=== PATIENT | female | born 1935 | race Caucasian/White ===

== ENCOUNTER → 2017-02-14 | Outpatient (CLI) | payer OTHER ==
[~2017-02-14] MED LIST: ASPIRIN325 MG PO; ASPIRIN81 M1 PO; CALCIUM600 M2 PO; PERCOCET 325 MG1 TA2 PO; ZOFRAN 4 MG ED2 TAB PO
== END | disposition home or self-care (01) ==
LOC: RAD 10:58
DX: Z13.820 Encounter for screening for osteoporosis (principal); M81.0 Age-related osteoporosis without current pathological fracture; E55.9 Vitamin D deficiency, unspecified; N95.9 Unspecified menopausal and perimenopausal disorder; Z98.890 Other specified postprocedural states

== ENCOUNTER → 2017-07-29 | Outpatient (CLI) | payer OTHER | LOC: ORTHO 01:45 | DX: S72.002D Fracture of unspecified part of neck of left femur, subsequent encounter for closed fracture with routine healing (principal); Z87.81 Personal history of (healed) traumatic fracture; Z96.642 Presence of left artificial hip joint; X58.XXXD Exposure to other specified factors, subsequent encounter ==

== ENCOUNTER → 2018-04-02 | Day surgery (SDC) | payer OTHER ==
[~2018-04-02] VITALS: Ht 165.1 cm; Wt 68.0 kg
[~2018-04-02] MED LIST changes: +ALENDRONATE SOD70 M1 PO; +ASPIRIN ADULT L81 M2 PO; +MULTIPLE VITAM1 EAC1 PO; +VITAMIN C500 M4 PO; +VITAMIN D400 UNIT/1 PO
--- NOTE | ~2018-04-02 | O ---
[place], [place] OPERATIVE NOTE NAME: ALICE NEELY UNIT #: [id number] ROOM: DOCTOR: NISH RANDOLPH MD BIRTHDATE: [birth year] DOS: 04/02/2018 PREOPERATIVE DIAGNOSIS: Cataract, left eye. POSTOPERATIVE DIAGNOSIS: Cataract, left eye. OPERATION: Extracapsular cataract extraction by phacoemulsification with posterior chamber intraocular lens implantation, left eye. ANESTHESIA: Monitored standby. OPERATIVE FINDINGS AND PROCEDURE: 2% Xylocaine topical anesthetic gel was applied to the eye in the preop area. The patient was taken to the operating room and prepped and draped in the standard fashion for sterile intraocular surgery. A time out procedure was performed verifying correct patient, correct site and corrects lens with Fam Randolph M.D. The operating microscope was swung into position and the lid speculum was inserted. Using a Claudette paracentesis blade, a paracentesis was made through clear cornea. Viscoelastic was used to fill the anterior chamber. Using a metal keratome a 2.4 mm self-sealing clear corneal cataract incision was made temporally at the limbus. Using a pre-bent 25 gauge cystotome needle, a standard continuous curvilinear capsulorrhexis was performed. The anterior capsule was removed with forceps. The lens nucleus was hydrodissected and phacoemulsified in the posterior chamber. Cortical material was removed with the irrigation aspiration hand piece and the posterior capsule was then polished with a curet under irrigation. The posterior chamber and capsular bag were filled with viscoelastic. A posterior chamber intraocular lens manufactured by: [employer], Model #[id number], and 20.0 diopters in strength were then inserted into the posterior chamber and within the capsular bag using the lens cartridge and injector system. Viscoelastic was removed using the irrigation aspiration handpiece. The anterior chamber was filled with balanced salt solution through the paracentesis. Both the paracentesis site and cataract incisions were hydrated with BSS and verified to be water-tight and self-sealing. The incision checked to be water-tight using a Weck-Kayla sponge. The integrity of the cataract wound and ocular tension were checked. Lid speculum and drapes were removed. The patient was transferred from the operating room to the recovery room in satisfactory condition. [place], [place] OPERATIVE NOTE NAME: ALICE NEELY UNIT #: [id number] ROOM: DOCTOR: NISH RANDOLPH MD BIRTHDATE: [birth year] NISH RANDOLPH MD CM:OPRECORD:OPERATIVE NOTE 1215 [id number] NISH RANDOLPH MD 04/02/18 1303 interface
[2018-04-02 10:38] VITALS: BP 150/62
[2018-04-02 11:59] VITALS: BP 122/67
[2018-04-02 12:14] VITALS: BP 122/62
[2018-04-02 12:29] VITALS: BP 138/64
== END | disposition home or self-care (01) ==
LOC: SDC 03-31 08:45
DX: H25.812 Combined forms of age-related cataract, left eye (principal); Z79.82 Long term (current) use of aspirin; Z79.899 Other long term (current) drug therapy; Z88.0 Allergy status to penicillin; Z91.09 Other allergy status, other than to drugs and biological substances; Z96.642 Presence of left artificial hip joint

== ENCOUNTER → 2018-04-23 | Day surgery (SDC) | payer OTHER ==
[~2018-04-23] VITALS: Ht 165.1 cm; Wt 63.5 kg
--- NOTE | ~2018-04-23 | O ---
[place], [place] OPERATIVE NOTE NAME: ALICE NEELY UNIT #: [id number] ROOM: DOCTOR: JOHN RANDOLPH MD BIRTHDATE: [birth year] DOS: 04/23/2018 PREOPERATIVE DIAGNOSIS: Cataract, right eye. POSTOPERATIVE DIAGNOSIS: Cataract, right eye. OPERATION: Extracapsular cataract extraction by phacoemulsification with posterior chamber intraocular lens implantation, right eye. ANESTHESIA: Monitored standby. OPERATIVE FINDINGS AND PROCEDURE: A 2% Xylocaine topical anesthetic gel was applied to the eye in the preop area. The patient was taken to the operating room and prepped and draped in the standard fashion for sterile intraocular surgery. A time out procedure was performed verifying correct patient, correct site and corrects lens with John Randolph M.D. The operating microscope was swung into position and the lid speculum was inserted. Using a Claudette paracentesis blade, a paracentesis was made through clear cornea. Viscoelastic was used to fill the anterior chamber. Using a metal keratome a 2.4 mm self-sealing clear corneal cataract incision was made temporally at the limbus. Using a pre-bent 25 gauge cystotome needle, a standard continuous curvilinear capsulorrhexis was performed. The anterior capsule was removed with forceps. The lens nucleus was hydrodissected and phacoemulsified in the posterior chamber. Cortical material was removed with the irrigation aspiration hand piece and the posterior capsule was then polished with a curet under irrigation. The posterior chamber and capsular bag were filled with viscoelastic. A posterior chamber intraocular lens manufactured by: [employer], Model #[id number], and 20.0 diopters in strength were then inserted into the posterior chamber and within the capsular bag using the lens cartridge and injector system. Viscoelastic was removed using the irrigation aspiration handpiece. The anterior chamber was filled with balanced salt solution through the paracentesis. Both the paracentesis site and cataract incisions were hydrated with BSS and verified to be water-tight and self-sealing. The incision checked to be water-tight using a Weck-Kayla sponge. The integrity of the cataract wound and ocular tension were checked. Lid speculum and drapes were removed. The patient was transferred from the operating room to the recovery room in satisfactory condition. [place], [place] OPERATIVE NOTE NAME: ALICE NEELY UNIT #: [id number] ROOM: DOCTOR: JOHN RANDOLPH MD BIRTHDATE: [birth year] JOHN RANDOLPH MD CM:OPRECORD:OPERATIVE NOTE 1300 1623 JOHN RANDOLPH MD 04/23/18 1621 interface
[2018-04-23 10:48] VITALS: BP 106/76
[2018-04-23 12:56] VITALS: BP 145/63
[2018-04-23 13:10] VITALS: BP 153/87
[2018-04-23 13:19] VITALS: BP 137/76
== END | disposition home or self-care (01) ==
LOC: SDC 04-18 12:30
DX: H25.811 Combined forms of age-related cataract, right eye (principal); Z88.0 Allergy status to penicillin; Z91.040 Latex allergy status; Z91.09 Other allergy status, other than to drugs and biological substances; Z96.642 Presence of left artificial hip joint; Z90.49 Acquired absence of other specified parts of digestive tract; Z80.9 Family history of malignant neoplasm, unspecified

== ENCOUNTER 2021-02-19 18:52 | Emergency (ER) | payer OTHER ==
[~2021-02-19] VITALS: Wt 61.2 kg
[2021-02-19] MEDS ORDERED: HYDROCODONE-AC1 EAC1 PO (21:52)
== END 2021-02-19 22:23 | disposition home or self-care (01) ==
LOC: ED 18:52
DX: S42.202A Unspecified fracture of upper end of left humerus, initial encounter for closed fracture (principal); S42.422A Displaced comminuted supracondylar fracture without intercondylar fracture of left humerus, initial encounter for closed fracture; Z88.0 Allergy status to penicillin; Z91.048 Other nonmedicinal substance allergy status; Z79.899 Other long term (current) drug therapy; Z79.82 Long term (current) use of aspirin; Z96.642 Presence of left artificial hip joint; W19.XXXA Unspecified fall, initial encounter; Y93.89 Activity, other specified; Y92.89 Other specified places as the place of occurrence of the external cause; Y99.8 Other external cause status

== ENCOUNTER 2021-03-25 09:35 | Emergency (ER) | payer OTHER ==
[~2021-03-25] VITALS: Ht 165.1 cm
[~2021-03-25 09:35] MED LIST changes: +HYDROCODONE-AC1 EAC1 PO
[2021-03-25 10:15] LABS: BASO # 0.1 10*3/uL (0.0-0.1); BASO % 0.9 % (0.0-1.0); EOS # 0.8 10*3/uL (0.0-0.4); EOS % 14.2 % (1.0-4.0); HEMATOCRIT 39.5 % (37.0-47.0); LYMPH % 17.7 % (27.0-41.0); MEAN CELL VOLUME 96.3 fl (81.0-99.0); MEAN CORPUSCULAR HGB 29.8 pg (27.0-31.0); MEAN CORPUSCULAR HGB CONC 30.9 g/dl (33.0-37.0); MEAN PLATELET VOLUME 10.4 fl (9.6-12.3); MONO # 0.5 10*3/uL (0.1-1.0); MONO % 8.8 % (3.0-9.0); NEUT # 3.3 10*3/uL (2.3-7.9); PLATELET COUNT AUTOMATED 224 10*3/uL (130-400); RED CELL DISTRI WIDTH 13.2 % (0-14.5); WHITE BLOOD COUNT 5.7 10*3/uL (4.8-10.8)
[2021-03-25 10:31] LABS: ALBUMIN 3.2 gm/dl (3.1-4.5); ALKALINE PHOSPHATASE 111 U/L (45-117); BUN 8 mg/dl (7-24); CHLORIDE 111 mmol/L (98-107); CREATININE 0.74 mg/dL (0.55-1.02); LIPASE 120 U/L (73-393); POTASSIUM 4.1 mmol/L (3.5-5.1); SGOT/AST 10 IU/L (3-35); SGPT/ALT 7 U/L (12-78); SODIUM 139 mmol/L (136-145); TOTAL PROTEIN 6.9 gm/dL (6.4-8.2)
[2021-03-25 10:35] LABS: BILIRUBIN Negative (Negative); BLOOD Negative (Negative); CLARITY Clear (Clear); COLOR Yellow (Yellow); GLUCOSE Negative (Negative); KETONE Negative (Negative); LEUKO ESTERASE Negative (Negative); NITRITE Negative (Negative); PH 7.5 (4.5-8.0)
[2021-03-25 10:49] LABS: BACTERIA 2+; EPITHELIAL CELLS 0-2; MUCOUS 1+; RBC 0-2 rbc/hpf (0-2); WBC 0-2 wbc/hpf (0-5)
== END 2021-03-25 11:03 | disposition home or self-care (01) ==
LOC: ED 09:35
PROVIDERS: Emergency Medicine
DX: S50.322A Blister (nonthermal) of left elbow, initial encounter (principal); R11.0 Nausea; Z88.0 Allergy status to penicillin; Z91.048 Other nonmedicinal substance allergy status; Z79.899 Other long term (current) drug therapy; Z79.82 Long term (current) use of aspirin; Z96.642 Presence of left artificial hip joint; X58.XXXA Exposure to other specified factors, initial encounter; Y93.89 Activity, other specified; Y92.89 Other specified places as the place of occurrence of the external cause; Y99.8 Other external cause status

== ENCOUNTER → 2021-05-24 | Outpatient (CLI) | payer OTHER | END | disposition home or self-care (01) | LOC: RAD 13:34 | PROVIDERS: ATTEND Nurse Practitioner Primary Care | DX: Z13.820 Encounter for screening for osteoporosis (principal); M81.0 Age-related osteoporosis without current pathological fracture; Z78.0 Asymptomatic menopausal state ==

== ENCOUNTER 2021-06-28 21:25 | Emergency (ER) | payer OTHER ==
[~2021-06-28] VITALS: Ht 165.1 cm; Wt 61.2 kg
[2021-06-29 01:39] LABS: BASO % 0.7 % (0.0-1.0); EOS # 0.1 10*3/uL (0.0-0.4); EOS % 2.3 % (1.0-4.0); HEMATOCRIT 43.9 % (37.0-47.0); LYMPH # 1.4 10*3/uL (1.3-4.4); LYMPH % 22.7 % (27.0-41.0); MEAN CELL VOLUME 92.8 fl (81.0-99.0); MEAN CORPUSCULAR HGB 29.2 pg (27.0-31.0); MEAN CORPUSCULAR HGB CONC 31.4 g/dl (33.0-37.0); MEAN PLATELET VOLUME 10.9 fl (9.6-12.3); MONO # 0.6 10*3/uL (0.1-1.0); MONO % 10.3 % (3.0-9.0); NEUT # 3.9 10*3/uL (2.3-7.9); NEUT % 63.7 % (47.0-73.0); PLATELET COUNT AUTOMATED 194 10*3/uL (130-400); RED BLOOD COUNT 4.73 10*6/uL (4.10-5.10); RED CELL DISTRI WIDTH 13.2 % (0-14.5); WHITE BLOOD COUNT 6.1 10*3/uL (4.8-10.8)
[2021-06-29 02:00] LABS: ALBUMIN 3.4 gm/dl (3.1-4.5); ALKALINE PHOSPHATASE 87 U/L (45-117); BUN 15 mg/dl (7-24); CHLORIDE 108 mmol/L (98-107); CREATININE 0.91 mg/dL (0.55-1.02); POTASSIUM 4.2 mmol/L (3.5-5.1); SGOT/AST 14 IU/L (3-35); SGPT/ALT 12 U/L (12-78); SODIUM 141 mmol/L (136-145); TOTAL PROTEIN 7.1 gm/dL (6.4-8.2)
[2021-06-29] MEDS ORDERED: MIRALAX POWDER17 G1 PO (02:29)
== END 2021-06-29 02:45 | disposition home or self-care (01) ==
LOC: ED 21:25
PROVIDERS: Internal Medicine
DX: K59.00 Constipation, unspecified (principal); Z88.0 Allergy status to penicillin; Z79.899 Other long term (current) drug therapy; Z79.82 Long term (current) use of aspirin

== ENCOUNTER → 2021-08-23 | Outpatient (CLI) | payer OTHER ==
[~2021-08-23] MED LIST changes: +MIRALAX POWDER17 G1 PO
== END | disposition home or self-care (01) ==
LOC: US 13:21
PROVIDERS: ATTEND Nurse Practitioner Primary Care
DX: R20.0 Anesthesia of skin (principal); M79.89 Other specified soft tissue disorders; R09.89 Other specified symptoms and signs involving the circulatory and respiratory systems

== ENCOUNTER 2022-08-16 08:16 | Emergency (ER) | payer OTHER ==
[~2022-08-16] VITALS: Ht 165.1 cm; Wt 52.2 kg
[2022-08-16] MEDS ORDERED: SINEMET 25-1001 EACH PO (08:53)
[2022-08-16] MEDS ORDERED: MIRTAZAPINE15 M2 PO (08:53)
[2022-08-16 09:12] LABS: BASO % 0.8 % (0.0-1.0); EOS # 0.1 10*3/uL (0.0-0.4); EOS % 2.2 % (1.0-4.0); HEMATOCRIT 41.3 % (37.0-47.0); LYMPH # 0.7 10*3/uL (1.3-4.4); LYMPH % 20.2 % (27.0-41.0); MEAN CELL VOLUME 93.4 fl (81.0-99.0); MEAN CORPUSCULAR HGB 29.4 pg (27.0-31.0); MEAN CORPUSCULAR HGB CONC 31.5 g/dl (33.0-37.0); MONO # 0.4 10*3/uL (0.1-1.0); MONO % 11.2 % (3.0-9.0); NEUT # 2.4 10*3/uL (2.3-7.9); NEUT % 65.1 % (47.0-73.0); PLATELET COUNT AUTOMATED 196 10*3/uL (130-400); RED BLOOD COUNT 4.42 10*6/uL (4.10-5.10); RED CELL DISTRI WIDTH 12.6 % (0-14.5); WHITE BLOOD COUNT 3.7 10*3/uL (4.8-10.8)
[2022-08-16 09:25] LABS: ACT PARTIAL THROMBO TIME 30.2 SECONDS (20.0-32.1); INTERNATIONAL NORM RATIO 1.1 (2.0-3.5)
[2022-08-16 09:28] LABS: ALKALINE PHOSPHATASE 87 U/L (45-117); BUN 15 mg/dl (7-24); CHLORIDE 109 mmol/L (98-107); CREATININE 0.76 mg/dL (0.55-1.02); POTASSIUM 3.8 mmol/L (3.5-5.1); SGPT/ALT 7 U/L (12-78); SODIUM 143 mmol/L (136-145); TOTAL PROTEIN 6.6 gm/dL (6.4-8.2)
[2022-08-16 09:31] LABS: BILIRUBIN Negative (Negative); BLOOD Negative (Negative); CLARITY Clear (Clear); COLOR Yellow (Yellow); GLUCOSE Negative (Negative); KETONE Trace (Negative); LEUKO ESTERASE 2+ (Negative); NITRITE Negative (Negative); SPECIFIC GRAVITY 1.025 (1.001-1.030)
[2022-08-16 10:15] LABS: WBC 21-30 wbc/hpf (0-5)
[2022-08-16 10:17] LABS: BACTERIA 3+; CALCIUM OXALATE CRYSTALS 1+
== END 2022-08-16 11:55 | disposition home or self-care (01) ==
LOC: ED 08:16
PROVIDERS: Emergency Medicine
DX: R53.1 Weakness (principal); G20 Parkinson's disease; Z88.0 Allergy status to penicillin; Z79.899 Other long term (current) drug therapy; Z79.82 Long term (current) use of aspirin

== ENCOUNTER 2022-08-21 19:18 | Inpatient (IN) | payer OTHER ==
[~2022-08-21] VITALS: Ht 165.1 cm; Wt 50.8 kg
[~2022-08-21 19:18] MED LIST changes: +MIRTAZAPINE15 M2 PO; +SINEMET 25-1001 EACH PO
[2022-08-21 19:20] VITALS: BP 114/74
[2022-08-21 20:26] LABS: BASO % 0.4 % (0.0-1.0); EOS # 0.1 10*3/uL (0.0-0.4); EOS % 1.3 % (1.0-4.0); HEMATOCRIT 40.5 % (37.0-47.0); LYMPH # 0.8 10*3/uL (1.3-4.4); LYMPH % 16.1 % (27.0-41.0); MEAN CELL VOLUME 94.2 fl (81.0-99.0); MEAN CORPUSCULAR HGB 29.8 pg (27.0-31.0); MEAN CORPUSCULAR HGB CONC 31.6 g/dl (33.0-37.0); MEAN PLATELET VOLUME 11.9 fl (9.6-12.3); MONO # 0.5 10*3/uL (0.1-1.0); MONO % 9.8 % (3.0-9.0); NEUT # 3.4 10*3/uL (2.3-7.9); PLATELET COUNT AUTOMATED 165 10*3/uL (130-400); RED CELL DISTRI WIDTH 12.9 % (0-14.5); WHITE BLOOD COUNT 4.8 10*3/uL (4.8-10.8)
[2022-08-21 20:47] LABS: ALKALINE PHOSPHATASE 80 U/L (46-116); BUN 11 mg/dl (9-23); CHLORIDE 105 mmol/L (98-107); CREATININE 0.76 mg/dL (0.55-1.02); POTASSIUM 3.8 mmol/L (3.4-5.1); SODIUM 140 mmol/L (136-145)
[2022-08-21 20:48] LABS: TOTAL PROTEIN 6.2 gm/dL (6.0-8.0)
[2022-08-21 20:49] LABS: SGPT/ALT < 7 U/L (10-49)
[2022-08-21 20:50] LABS: THYROID STIM HORMONE (HS) 1.076 uIU/ml (0.550-4.780)
[2022-08-21 20:59] LABS: BILIRUBIN Negative (Negative); BLOOD Negative (Negative); CLARITY Clear (Clear); COLOR Yellow (Yellow); GLUCOSE Negative (Negative); KETONE 1+ (Negative); LEUKO ESTERASE Trace (Negative); NITRITE Negative (Negative); PH 6.5 (4.5-8.0); SPECIFIC GRAVITY 1.015 (1.001-1.030)
[2022-08-21 21:19] LABS: RBC 0-2 rbc/hpf (0-2)
[2022-08-22 06:20] LABS: BASO % 0.6 % (0.0-1.0); EOS # 0.1 10*3/uL (0.0-0.4); EOS % 1.3 % (1.0-4.0); HEMATOCRIT 41.2 % (37.0-47.0); LYMPH # 1.1 10*3/uL (1.3-4.4); LYMPH % 21.2 % (27.0-41.0); MEAN CELL VOLUME 94.7 fl (81.0-99.0); MEAN CORPUSCULAR HGB 29.4 pg (27.0-31.0); MEAN CORPUSCULAR HGB CONC 31.1 g/dl (33.0-37.0); MEAN PLATELET VOLUME 11.6 fl (9.6-12.3); MONO # 0.6 10*3/uL (0.1-1.0); MONO % 11.1 % (3.0-9.0); NEUT # 3.5 10*3/uL (2.3-7.9); NEUT % 65.2 % (47.0-73.0); PLATELET COUNT AUTOMATED 166 10*3/uL (130-400); RED BLOOD COUNT 4.35 10*6/uL (4.10-5.10); RED CELL DISTRI WIDTH 12.7 % (0-14.5); WHITE BLOOD COUNT 5.3 10*3/uL (4.8-10.8)
[2022-08-22 06:36] LABS: ALKALINE PHOSPHATASE 79 U/L (46-116); BUN 9 mg/dl (9-23); CHLORIDE 107 mmol/L (98-107); CHOLESTEROL 163 mg/dL (<200); CREATININE 0.68 mg/dL (0.55-1.02); LDL CHOLESTEROL 101 mg/dL (9-159); POTASSIUM 3.6 mmol/L (3.4-5.1); SODIUM 141 mmol/L (136-145); TRIGLYCERIDES 75 mg/dl (<150)
[2022-08-22 06:40] LABS: FREE T4 1.23 ng/dl (0.89-1.76)
[2022-08-22 06:41] LABS: SGPT/ALT < 7 U/L (10-49)
[2022-08-22 07:30] VITALS: BP 140/60
[2022-08-22 10:30] VITALS: BP 150/69
[2022-08-22 13:30] VITALS: BP 158/77
[2022-08-22 17:30] VITALS: BP 159/66
[2022-08-22 20:00] VITALS: BP 148/72
[2022-08-23] VITALS: BP 129/67
[2022-08-23 07:46] VITALS: BP 120/76
[2022-08-23 12:15] VITALS: BP 132/73
[2022-08-23 16:00] VITALS: BP 137/63
[2022-08-23 20:00] VITALS: BP 153/68
[2022-08-24] VITALS: BP 129/60
[2022-08-24 08:00] VITALS: BP 142/68
[2022-08-24 12:00] VITALS: BP 133/67
[2022-08-24 16:00] VITALS: BP 146/67
[2022-08-24 20:00] VITALS: BP 118/62
[2022-08-25] VITALS: BP 110/58
[2022-08-25 04:39] VITALS: BP 110/50
[2022-08-25 08:00] VITALS: BP 126/59
[2022-08-25 12:00] VITALS: BP 132/68
[2022-08-25 16:00] VITALS: BP 133/57
[2022-08-25 20:00] VITALS: BP 117/65
[2022-08-26] VITALS: BP 121/62
[2022-08-26 04:11] VITALS: BP 118/66
[2022-08-26 08:00] VITALS: BP 134/57
[2022-08-26 12:00] VITALS: BP 109/57
[2022-08-26 16:00] VITALS: BP 120/50
[2022-08-26 20:00] VITALS: BP 127/66
[2022-08-27] VITALS: BP 128/83
[2022-08-27 05:20] LABS: CREATININE 0.81 mg/dL (0.55-1.02)
[2022-08-27 06:26] LABS: BASO % 0.6 % (0.0-1.0); EOS # 0.1 10*3/uL (0.0-0.4); HEMATOCRIT 38.9 % (37.0-47.0); LYMPH # 1.5 10*3/uL (1.3-4.4); LYMPH % 32.2 % (27.0-41.0); MEAN CORPUSCULAR HGB CONC 30.8 g/dl (33.0-37.0); MONO # 0.7 10*3/uL (0.1-1.0); MONO % 13.9 % (3.0-9.0); NEUT # 2.4 10*3/uL (2.3-7.9); NEUT % 50.1 % (47.0-73.0); PLATELET COUNT AUTOMATED 160 10*3/uL (130-400); RED BLOOD COUNT 4.14 10*6/uL (4.10-5.10); RED CELL DISTRI WIDTH 12.8 % (0-14.5); WHITE BLOOD COUNT 4.7 10*3/uL (4.8-10.8)
[2022-08-27 08:00] VITALS: BP 124/61
[2022-08-27 12:00] VITALS: BP 135/60
== END 2022-08-27 13:00 | disposition home health service (06) | DRG 69 ==
LOC: ED 19:18 → EDHOLD 08-22 00:11 → 5E 08-22 00:11
PROVIDERS: Emergency Medicine; Internal Medicine; ADMIT Internal Medicine; ATTEND Internal Medicine
DX: G45.9 Transient cerebral ischemic attack, unspecified (principal); L12.0 Bullous pemphigoid; R26.2 Difficulty in walking, not elsewhere classified; G20 Parkinson's disease; Z20.822 Contact with and (suspected) exposure to COVID-19; Z96.642 Presence of left artificial hip joint; R73.9 Hyperglycemia, unspecified; L89.312 Pressure ulcer of right buttock, stage 2; Z88.0 Allergy status to penicillin; Z82.49 Family history of ischemic heart disease and other diseases of the circulatory system; Z87.39 Personal history of other diseases of the musculoskeletal system and connective tissue

== ENCOUNTER → 2022-09-06 | Outpatient (CLI) | payer OTHER | END | disposition home or self-care (01) | LOC: WOUNDCARE 04:49 | PROVIDERS: ATTEND Nurse Practitioner Family | DX: L89.153 Pressure ulcer of sacral region, stage 3 (principal); L89.313 Pressure ulcer of right buttock, stage 3; G20 Parkinson's disease; M85.80 Other specified disorders of bone density and structure, unspecified site ==

== ENCOUNTER → 2023-02-27 | Outpatient (CLI) | payer OTHER, MEDICAID ==
[~2023-02-27] MED LIST changes: +LEXAPRO10 MG PO; +VISTARIL25 MG PO
== END | disposition home or self-care (01) ==
LOC: RAD 12:03
PROVIDERS: ATTEND Psychiatry & Neurology Neurology
DX: M17.12 Unilateral primary osteoarthritis, left knee (principal)

== ENCOUNTER → 2023-07-12 | Outpatient (CLI) | payer MEDICARE ==
[~2023-07-12] MED LIST changes: +ANTIFUNGAL POWD85 G1 T; +LEVOFLOXACIN500 MG PO; +Sinemet Cr 50/21 TAB PO; +TAB-A-VITE TA400 MCG PO; +ZYVOX600 MG PO
== END | disposition home or self-care (01) ==
LOC: WOUNDCARE 02:35
PROVIDERS: ATTEND Nurse Practitioner Family
DX: L89.154 Pressure ulcer of sacral region, stage 4 (principal); L89.223 Pressure ulcer of left hip, stage 3; L89.313 Pressure ulcer of right buttock, stage 3; L89.323 Pressure ulcer of left buttock, stage 3; R62.7 Adult failure to thrive; D64.9 Anemia, unspecified; E43 Unspecified severe protein-calorie malnutrition; R26.89 Other abnormalities of gait and mobility; G20.C Parkinsonism, unspecified; M85.80 Other specified disorders of bone density and structure, unspecified site

== ENCOUNTER → 2023-07-16 | Outpatient (CLI) | payer MEDICARE | END | disposition home or self-care (01) | LOC: WOUNDCARE 04:38 | PROVIDERS: ATTEND Nurse Practitioner Family | DX: L89.154 Pressure ulcer of sacral region, stage 4 (principal); L89.323 Pressure ulcer of left buttock, stage 3; L89.313 Pressure ulcer of right buttock, stage 3; R62.7 Adult failure to thrive; D64.9 Anemia, unspecified; E43 Unspecified severe protein-calorie malnutrition; R26.89 Other abnormalities of gait and mobility; G20.C Parkinsonism, unspecified; M85.80 Other specified disorders of bone density and structure, unspecified site ==

== ENCOUNTER → 2023-07-24 | Outpatient (CLI) | payer MEDICARE | END | disposition home or self-care (01) | LOC: WOUNDCARE 01:22 | PROVIDERS: ATTEND Nurse Practitioner Family | DX: L89.154 Pressure ulcer of sacral region, stage 4 (principal); L89.323 Pressure ulcer of left buttock, stage 3; L89.313 Pressure ulcer of right buttock, stage 3; R62.7 Adult failure to thrive; D64.9 Anemia, unspecified; E43 Unspecified severe protein-calorie malnutrition; R26.89 Other abnormalities of gait and mobility; G20.A1 Parkinson's disease without dyskinesia, without mention of fluctuations; M85.80 Other specified disorders of bone density and structure, unspecified site ==

== ENCOUNTER → 2023-07-31 | Outpatient (CLI) | payer MEDICARE | END | disposition home or self-care (01) | LOC: WOUNDCARE 01:55 | PROVIDERS: ATTEND Nurse Practitioner Family | DX: L89.154 Pressure ulcer of sacral region, stage 4 (principal); L89.323 Pressure ulcer of left buttock, stage 3; L89.313 Pressure ulcer of right buttock, stage 3; R62.7 Adult failure to thrive; D64.9 Anemia, unspecified; E43 Unspecified severe protein-calorie malnutrition; R26.89 Other abnormalities of gait and mobility; G20.A1 Parkinson's disease without dyskinesia, without mention of fluctuations; M85.80 Other specified disorders of bone density and structure, unspecified site ==

== ENCOUNTER → 2023-08-07 | Outpatient (CLI) | payer MEDICARE | END | disposition home or self-care (01) | LOC: WOUNDCARE 01:25 | PROVIDERS: ATTEND Nurse Practitioner Family | DX: L89.154 Pressure ulcer of sacral region, stage 4 (principal); L89.223 Pressure ulcer of left hip, stage 3; L89.313 Pressure ulcer of right buttock, stage 3; R62.7 Adult failure to thrive; D64.9 Anemia, unspecified; E43 Unspecified severe protein-calorie malnutrition; R26.89 Other abnormalities of gait and mobility; G20.A1 Parkinson's disease without dyskinesia, without mention of fluctuations; M85.80 Other specified disorders of bone density and structure, unspecified site ==

== ENCOUNTER → 2023-08-14 | Outpatient (CLI) | payer MEDICARE | LOC: WOUNDCARE 01:31 | PROVIDERS: ATTEND Nurse Practitioner Family | DX: L89.313 Pressure ulcer of right buttock, stage 3 (principal); L89.154 Pressure ulcer of sacral region, stage 4; L89.323 Pressure ulcer of left buttock, stage 3; R62.7 Adult failure to thrive; D64.9 Anemia, unspecified; E43 Unspecified severe protein-calorie malnutrition; R26.89 Other abnormalities of gait and mobility; G20.A1 Parkinson's disease without dyskinesia, without mention of fluctuations; M85.89 Other specified disorders of bone density and structure, multiple sites ==

== ENCOUNTER 2023-08-20 09:12 | Emergency (ER) | payer MEDICARE ==
[2023-08-20] MEDS ORDERED: MILK OF MA400 MG/53 PO (13:16)
[2023-08-20] MEDS ORDERED: REMERON15 M2 PO (13:17)
== END 2023-08-20 14:28 ==
LOC: ED 09:12
DX: R53.1 Weakness (principal); Z88.0 Allergy status to penicillin; Z98.890 Other specified postprocedural states

== ENCOUNTER → 2023-08-21 | Outpatient (CLI) | payer MEDICARE ==
[~2023-08-21] MED LIST changes: +MILK OF MA400 MG/53 PO; +REMERON15 M2 PO
== END | disposition home or self-care (01) ==
LOC: WOUNDCARE 01:26
PROVIDERS: ATTEND Nurse Practitioner Family
DX: L89.154 Pressure ulcer of sacral region, stage 4 (principal); L89.313 Pressure ulcer of right buttock, stage 3; L89.323 Pressure ulcer of left buttock, stage 3; R62.7 Adult failure to thrive; D64.9 Anemia, unspecified; E43 Unspecified severe protein-calorie malnutrition; R26.89 Other abnormalities of gait and mobility; G20.A1 Parkinson's disease without dyskinesia, without mention of fluctuations; M85.80 Other specified disorders of bone density and structure, unspecified site

== ENCOUNTER → 2023-08-27 | Outpatient (CLI) | payer MEDICARE | END | disposition home or self-care (01) | LOC: WOUNDCARE 00:49 | PROVIDERS: ATTEND Nurse Practitioner Family | DX: L89.154 Pressure ulcer of sacral region, stage 4 (principal); L89.313 Pressure ulcer of right buttock, stage 3; L89.323 Pressure ulcer of left buttock, stage 3; D64.9 Anemia, unspecified; E43 Unspecified severe protein-calorie malnutrition; R26.89 Other abnormalities of gait and mobility; G20.A1 Parkinson's disease without dyskinesia, without mention of fluctuations; M85.80 Other specified disorders of bone density and structure, unspecified site ==

== ENCOUNTER → 2023-09-04 | Outpatient (CLI) | payer MEDICARE | END | disposition home or self-care (01) | LOC: WOUNDCARE 01:28 | PROVIDERS: ATTEND Nurse Practitioner Primary Care | DX: L89.154 Pressure ulcer of sacral region, stage 4 (principal); L89.313 Pressure ulcer of right buttock, stage 3; L89.323 Pressure ulcer of left buttock, stage 3; L89.213 Pressure ulcer of right hip, stage 3; D64.9 Anemia, unspecified; E43 Unspecified severe protein-calorie malnutrition; G20.A1 Parkinson's disease without dyskinesia, without mention of fluctuations; R26.89 Other abnormalities of gait and mobility; R62.7 Adult failure to thrive; M85.80 Other specified disorders of bone density and structure, unspecified site ==

== ENCOUNTER → 2023-09-09 | Outpatient (CLI) | payer MEDICARE | END | disposition home or self-care (01) | LOC: WOUNDCARE 01:02 | PROVIDERS: ATTEND Nurse Practitioner Family | DX: L89.154 Pressure ulcer of sacral region, stage 4 (principal); L89.313 Pressure ulcer of right buttock, stage 3; L89.323 Pressure ulcer of left buttock, stage 3; R62.7 Adult failure to thrive; R26.89 Other abnormalities of gait and mobility; D64.9 Anemia, unspecified; G20.A1 Parkinson's disease without dyskinesia, without mention of fluctuations; E43 Unspecified severe protein-calorie malnutrition; Z68.1 Body mass index [BMI] 19.9 or less, adult; Z79.82 Long term (current) use of aspirin ==

== ENCOUNTER → 2023-09-24 | Outpatient (CLI) | payer MEDICARE | END | disposition home or self-care (01) | LOC: WOUNDCARE 02:16 | PROVIDERS: ATTEND Nurse Practitioner Family | DX: L89.154 Pressure ulcer of sacral region, stage 4 (principal); L89.313 Pressure ulcer of right buttock, stage 3; L89.323 Pressure ulcer of left buttock, stage 3; R62.7 Adult failure to thrive; D64.9 Anemia, unspecified; E43 Unspecified severe protein-calorie malnutrition; R26.89 Other abnormalities of gait and mobility; G20.A1 Parkinson's disease without dyskinesia, without mention of fluctuations; M85.80 Other specified disorders of bone density and structure, unspecified site ==

== ENCOUNTER → 2023-10-09 | Outpatient (CLI) | payer MEDICARE | END | disposition home or self-care (01) | LOC: WOUNDCARE 02:53 | PROVIDERS: ATTEND Nurse Practitioner Family | DX: L89.154 Pressure ulcer of sacral region, stage 4 (principal); L89.313 Pressure ulcer of right buttock, stage 3; L89.323 Pressure ulcer of left buttock, stage 3; R62.7 Adult failure to thrive; D64.9 Anemia, unspecified; R26.89 Other abnormalities of gait and mobility; G20.A1 Parkinson's disease without dyskinesia, without mention of fluctuations; E43 Unspecified severe protein-calorie malnutrition; Z68.1 Body mass index [BMI] 19.9 or less, adult; Z79.82 Long term (current) use of aspirin ==

== ENCOUNTER → 2023-10-22 | Outpatient (CLI) | payer MEDICARE | END | disposition home or self-care (01) | LOC: WOUNDCARE 01:53 | PROVIDERS: ATTEND Nurse Practitioner Family | DX: L89.154 Pressure ulcer of sacral region, stage 4 (principal); L89.313 Pressure ulcer of right buttock, stage 3; L89.323 Pressure ulcer of left buttock, stage 3; D64.9 Anemia, unspecified; E43 Unspecified severe protein-calorie malnutrition; R26.89 Other abnormalities of gait and mobility; G20.A1 Parkinson's disease without dyskinesia, without mention of fluctuations; M85.80 Other specified disorders of bone density and structure, unspecified site ==

== ENCOUNTER → 2023-11-07 | Outpatient (CLI) | payer MEDICARE | LOC: WOUNDCARE 01:58 | PROVIDERS: ATTEND Nurse Practitioner Family | DX: L89.154 Pressure ulcer of sacral region, stage 4 (principal); L89.313 Pressure ulcer of right buttock, stage 3; L89.323 Pressure ulcer of left buttock, stage 3; R62.7 Adult failure to thrive; D64.9 Anemia, unspecified; E43 Unspecified severe protein-calorie malnutrition; R26.89 Other abnormalities of gait and mobility; G20.A1 Parkinson's disease without dyskinesia, without mention of fluctuations; Z68.1 Body mass index [BMI] 19.9 or less, adult ==

== ENCOUNTER → 2023-12-06 | Outpatient (CLI) | payer MEDICARE | END | disposition home or self-care (01) | LOC: WOUNDCARE 00:47 | PROVIDERS: ATTEND Nurse Practitioner Family | DX: L89.154 Pressure ulcer of sacral region, stage 4 (principal); L89.323 Pressure ulcer of left buttock, stage 3; L89.313 Pressure ulcer of right buttock, stage 3; D64.9 Anemia, unspecified; R62.7 Adult failure to thrive; E43 Unspecified severe protein-calorie malnutrition; R26.89 Other abnormalities of gait and mobility; G20.A1 Parkinson's disease without dyskinesia, without mention of fluctuations; M85.80 Other specified disorders of bone density and structure, unspecified site; L12.0 Bullous pemphigoid; Z79.82 Long term (current) use of aspirin; Z79.899 Other long term (current) drug therapy; Z68.1 Body mass index [BMI] 19.9 or less, adult ==

== ENCOUNTER 2025-04-01 16:43 | Emergency (ER) | payer OTHER ==
[~2025-04-01 16:43] MED LIST changes: +BISACODYL10 MG R; +CIPRO500 MG PO; +Carafate1 GM PO; +DULCOLAX STOOL100 M1 PO; +LINEZOLID600 MG PO; +METRONIDAZOLE500 M1 PO; +MILK OF MA400 MG/5 M PO; +MILK OF MA400 MG/51 PO; +MIRTAZAPINE45 MG PO
[2025-04-01] MEDS ORDERED: SODIUM CHLORIDE 0.9% 1,000 ML IV ONE (16:50)
[2025-04-01 17:08] LABS: BASO # 0.1 10*3/uL (0.0-0.1); BASO % 0.9 % (0.0-1.0); EOS # 0.5 10*3/uL (0.0-0.4); EOS % 6.6 % (1.0-4.0); MEAN CELL VOLUME 92.7 fl (81.0-99.0); MEAN CORPUSCULAR HGB 28.2 pg (27.0-31.0); MEAN PLATELET VOLUME 9.9 fl (9.6-12.3); MONO # 0.8 10*3/uL (0.1-1.0); MONO % 11.1 % (3.0-9.0); NEUT # 4.5 10*3/uL (2.3-7.9); NEUT % 66.6 % (47.0-73.0); NUCLEATED RED BLOOD CELL 0.0 % (0.0-0.0); NUCLEATED RED BLOOD CELL 0.0 10*3/uL (0.0-0.0); PLATELET COUNT AUTOMATED 288 10*3/uL (130-400); RED CELL DISTRI WIDTH 13.2 % (0-14.5)
[2025-04-01 17:27] LABS: BUN 12 mg/dl (9-23)
[2025-04-01] MEDS ORDERED: CIPRO500 MG PO (17:45)
== END 2025-04-01 19:02 | disposition home or self-care (01) ==
LOC: ED 16:43
PROVIDERS: Emergency Medicine
DX: T83.028A Displacement of other urinary catheter, initial encounter (principal); J44.9 Chronic obstructive pulmonary disease, unspecified; Z86.73 Personal history of transient ischemic attack (TIA), and cerebral infarction without residual deficits; Z79.899 Other long term (current) drug therapy; Z88.0 Allergy status to penicillin; Z91.013 Allergy to seafood; Z98.890 Other specified postprocedural states; Y84.6 Urinary catheterization as the cause of abnormal reaction of the patient, or of later complication, without mention of misadventure at the time of the procedure

== ENCOUNTER 2025-06-21 06:19 | Emergency (ER) | payer OTHER ==
[~2025-06-21] VITALS: Wt 47.6 kg
[2025-06-21] MEDS ORDERED: Acetaminophen/Oxycodone 5 MG/325 MG TABLET PO ONE (06:25)
[2025-06-21] MEDS ORDERED: PERCOCET 5-3251 EACH PO (08:39)
== END 2025-06-21 09:28 | disposition home or self-care (01) ==
LOC: ED 06:19
DX: S72.002A Fracture of unspecified part of neck of left femur, initial encounter for closed fracture (principal); M54.2 Cervicalgia; R51.9 Headache, unspecified; M25.512 Pain in left shoulder; M25.522 Pain in left elbow; J44.9 Chronic obstructive pulmonary disease, unspecified; Z88.0 Allergy status to penicillin; Z91.013 Allergy to seafood; Z91.018 Allergy to other foods; Z88.8 Allergy status to other drugs, medicaments and biological substances; Z98.890 Other specified postprocedural states; Z86.73 Personal history of transient ischemic attack (TIA), and cerebral infarction without residual deficits; W19.XXXA Unspecified fall, initial encounter; Y93.89 Activity, other specified; Y92.89 Other specified places as the place of occurrence of the external cause; Y99.8 Other external cause status

== ENCOUNTER → 2025-07-02 | Outpatient (CLI) | payer OTHER ==
[~2025-07-02] MED LIST changes: +PERCOCET 5-3251 EACH PO
== END | disposition home or self-care (01) ==
LOC: ORTHO 12:42
PROVIDERS: ATTEND Orthopaedic Surgery
DX: S72.112A Displaced fracture of greater trochanter of left femur, initial encounter for closed fracture (principal); M85.88 Other specified disorders of bone density and structure, other site; Z96.642 Presence of left artificial hip joint; X58.XXXA Exposure to other specified factors, initial encounter; Y93.89 Activity, other specified; Y92.89 Other specified places as the place of occurrence of the external cause; Y99.8 Other external cause status